=== PATIENT | female | born 2000 | race Caucasian/White ===

== ENCOUNTER 2018-03-18 10:28 | Emergency (ER) | payer OTHER ==
[~2018-03-18] VITALS: Ht 160 cm; Wt 59.0 kg
[2018-03-18 10:33] VITALS: BP 110/72
== END 2018-03-18 13:07 | disposition home or self-care (01) ==
LOC: ER 10:28
DX: S91.331A Puncture wound without foreign body, right foot, initial encounter (principal); W22.8XXA Striking against or struck by other objects, initial encounter; Y93.89 Activity, other specified; Y92.89 Other specified places as the place of occurrence of the external cause; Y99.8 Other external cause status

== ENCOUNTER 2018-03-19 15:45 | Emergency (ER) | payer OTHER ==
[~2018-03-19] VITALS: Ht 160 cm; Wt 59.0 kg
[2018-03-19 16:15] VITALS: BP 110/57
== END 2018-03-19 17:37 | disposition home or self-care (01) ==
LOC: ER 15:48
DX: M79.671 Pain in right foot (principal); Z76.0 Encounter for issue of repeat prescription

== ENCOUNTER 2020-02-24 12:00 | Emergency (ER) | payer MEDICAID, OTHER ==
[~2020-02-24] VITALS: Ht 160 cm; Wt 63.5 kg
[2020-02-24 14:26] VITALS: BP 114/71
== END 2020-02-24 14:27 | disposition home or self-care (01) ==
LOC: ER 12:00
DX: J20.9 Acute bronchitis, unspecified (principal)
CPT/HCPCS: 71046